=== PATIENT | male | born 1995 | race Caucasian/White ===

== ENCOUNTER 2016-11-18 19:25 | Emergency (ER) | payer OTHER ==
[~2016-11-18] VITALS: Ht 180.3 cm; Wt 108.9 kg
--- NOTE | ~2016-11-18 | EKG ---
[address] [address] ELECTROCARDIOGRAM REPORT Name: REINIER BLANC Room #: [facility] [id number] Admission: 11/18/16 Attend Phys: Discharge: 11/18/16 Date of : [birth year] Report #: [id number] THIS REPORT FOR: //name// [facility] ED Test Date: 2016-11-18 Test Time: 19:42:03 Pat Name: REINIER BLANC Department: Room: Gender: M Sba Underwriter: sjmced : 1995 Requested By: Martin Castillo Order Number: [id number] MD: Efra Schwarz Measurements Intervals [place] Rate: 131 P: 40 MI: 140 QRS: 15 QRSD: 82 T: 12 QT: 294 QTc: 434 Interpretive Statements Sinus tachycardia Baseline wander in lead(s) III No previous ECG available for comparison Electronically Signed On 11-19-2016 16:05:50 [employer] by Efra Schwarz [email or web address] <ELECTRONICALLY SIGNED> By: Efra Schwarz MD 11/19/16 1605 194 41 Efra Schwarz MD /SHANNAN
[~2016-11-18 19:25] MED LIST: NOHOMEMEDICATIONS; NORCO 5-325 TA1 EACH PO
[2016-11-18] MEDS ORDERED: COZAAR 50 MG TA50 M2 PO (19:41)
[2016-11-18 20:04] LABS: ABSOLUTE NEUTROPHILS 5.7 thou/uL (1.4-8.2); EOSINOPHILS 0.4 % (0.0-3.0); HEMATOCRIT 45.6 % (42.0-52.0); HEMOGLOBIN 16.1 gm/dL (14.0-18.0); LYMPHOCYTES 14.9 % (24.0-44.0); MCHC 35.4 % (28.0-37.0); MCV 81.9 fL (80.0-100.0); MONOCYTES 11.9 % (1.0-8.0); PLATELET COUNT 253 thou/uL (150-400); POLYS 71.8 % (36.0-66.0); RBC 5.56 mil/uL (4.50-6.00)
[2016-11-18 20:05] LABS: MANUAL DIFF NO
[2016-11-18 20:14] LABS: CALCIUM 8.9 mg/dL (8.5-10.1); CREATININE 1.1 mg/dL (0.6-1.3); POTASSIUM 4.2 mmol/L (3.5-5.1)
[2016-11-18] MEDS ORDERED: PROVENTIL HFA6.7 G1 INH (20:50)
[2016-11-18] MEDS ORDERED: LISINOPRIL10 MG PO (20:50)
[2016-11-18] MEDS ORDERED: PREDNISONE 20 M20 MG PO (20:50)
[2016-11-18 20:55] VITALS: BP 142/86
[2016-12-06] MEDS ORDERED: ONDANSETRON HCL4 M2 PO (01:13)
[2016-12-06] MEDS ORDERED: LEVSIN0.125 MG PO (01:13)
== END 2016-11-18 21:01 | disposition home or self-care (01) ==
LOC: ER 19:25
PROVIDERS: Physician Assistant
DX: I10 Essential (primary) hypertension (principal); E87.1 Hypo-osmolality and hyponatremia; J11.1 Influenza due to unidentified influenza virus with other respiratory manifestations; R42 Dizziness and giddiness; R50.9 Fever, unspecified; F17.210 Nicotine dependence, cigarettes, uncomplicated